=== PATIENT | female | born 1955 | race Two or more races ===

== ENCOUNTER 2016-08-26 05:22 | Day surgery (SDC) | payer OTHER ==
--- NOTE | 2016-08-25 12:27 | PREOPHP ---
DATE OF ADMISSION: 08/26/2016 REASON FOR ADMISSION: The patient is to be admitted tomorrow, 08/26/2016, for a vaginal hysterectom y, anterior and posterior repair with Bibiana plication. CHIEF COMPLAINT: The patient feels and sees something protruding out of the vagina. HISTORY OF PRESENT ILLNESS: This is a 60-year-old female, 5, para 5, who has been experienc ing and the fact that something is coming out of the vagina. She can reduce it with her fingers, bu t as soon as she moves around, it will come out again. She was found to have a uterine prolapse, cy stocele and rectocele. She is also complaining of moderate urinary incontinence to coughing or laug anna with minimal efforts. A total vaginal hysterectomy, anterior and posterior repair with Bibiana p lication was planned for her. This procedure was carefully explained in the office. It was explain ed in a graphic way so she could understand what it implied. The alternatives to the procedure, the benefits of the same, the risks, and possible complications were discussed in great detail. She w as allowed to ask questions and all her questions were answered to her satisfaction. She signed the appropriate surgical informed consent for hysterectomy. She was also made aware that may need to w ear a Castaneda catheter for a few days after the anterior repair. The patient is a Protestant a nd would not accept blood products. All the precautions will be taken to recycle her old blood loss . She was also made aware that there may be complications to the procedure need to be fixed by a la parotomy. PAST MEDICAL HISTORY: The patient denies any medical problems. Denies diabetes, cardiovascular dis ease, renal disease, liver disease, neurological disease, or thyroid problems. ALLERGIES: NO KNOWN ALLERGIES. MEDICATIONS: She has been using the 81 mg aspirin daily, but it was stopped 10 days prior to surger y. FAMILY HISTORY: Noncontributory. REVIEW OF SYSTEMS: A 12-point review of systems is noncontributory. PHYSICAL EXAMINATION: GENERAL: Well-developed and nourished, in no distress, alert and oriented x3 with a height of 5 fee t 4 inches, weight 124 pounds. VITAL SIGNS: Showed temperature to be 98, blood pressure 140/62, respirations 16 per minute, the pu lse is 72 per minute and regular. HEENT: Within normal limits. Pupils are PERRLA. NECK: Supple. The thyroid is not palpable. There is no lymphadenopathy. BREASTS: Show no masses or lumps. LUNGS: Clear to percussion and auscultation. HEART: Normal sinus rhythm without a murmur. ABDOMEN: Soft without organomegalies or hernias. PELVIC: Normal external genitalia. Cervix is prolapsing at the level of the vagina entrance. Ther e is a cystocele and rectocele present. Bimanual exam: Uterus small, mobile. There are no adnexa l masses present, and loss of the urethrovesical angle was also observed. EXTREMITIES: Within normal limits. NEUROLOGIC: Also normal. IMPRESSION: 1. Pelvic organ prolapse. 2. Uterine prolapse. 3. Cystocele and rectocele. 4. Stress urinary incontinence. Dictated By: ALEX ALLISON MD CR/NTS Conf#: [id number] DID#: [id number] CC: PAYAL FLOWERS MD;*End*
[~2016-08-26] VITALS: Ht 160 cm; Wt 57.6 kg
[2016-08-26] VITALS (20 sets, daily range): BP systolic 80–133; BP diastolic 51–65; PULSE 49–72; RESP 12–20; Ht 160 cm; Wt 57.6 kg
[2016-08-26] MEDS ORDERED: PHENYLephrine (100 MCG/ML) 5ML SYG ONE (05:31)
[2016-08-26] MEDS ORDERED: SODIUM CL BACTERIOSTATIC 30 ML INJ ONE ×2 (07:03→07:07)
[2016-08-26] MEDS ORDERED: BUPIVACAINE 0.5%/EPI (SDV) 30 ML INJ ONE (07:03)
[2016-08-26] MEDS ORDERED: VASOPRESSIN 20 UNITS INJ ONE (07:03)
[2016-08-26] MEDS ORDERED: FENTAnyl 50 MCG/ML VIAL ONE (07:18)
[2016-08-26] MEDS ORDERED: HEPARIN 1000 UNITS/ML 10 ML INJ ONE (07:49)
[2016-08-26] MEDS ORDERED: ASPI81TA3 PO (08:03)
[2016-08-26] MEDS ORDERED: HYDROmorphONE (0.2 MG/ML) 10ML SYG IV PRN ×3 (08:30)
[2016-08-26] MEDS ORDERED: ONDANSETRON 4 MG INJ IV PRN ×2 (08:30→11:00)
[2016-08-26] MEDS ORDERED: METOCLOPRAMIDE 10 MG INJ IV PRN (08:30)
[2016-08-26] MEDS ORDERED: MEPERIDINE 25 MG INJ IV PRN (08:30)
[2016-08-26] MEDS ORDERED: DIPHENHYDRAMINE 50 MG INJ IV PRN (08:30)
[2016-08-26] MEDS ORDERED: HYDROmorphONE 0.2 MG/ML PCA IV SCH (08:30)
[2016-08-26] MEDS ORDERED: ALBUTEROL 0.5% (NEB) 2.5 MG/0.5 ML AMP INH ONE (08:30)
[2016-08-26] MEDS ORDERED: METHYLENE BLUE 10 MG/ML VIAL ONE ×2 (08:42→09:40)
[2016-08-26] MEDS ORDERED: PROPOFOL 20 ML ONE (08:44)
[2016-08-26] MEDS ORDERED: LIDOCAINE 2% (SDV) 5 ML INJ ONE (08:44)
[2016-08-26] MEDS ORDERED: GLYCOPYRROLATE 0.4 MG INJ ONE (08:44)
[2016-08-26] MEDS ORDERED: NEOSTIGMINE 3 MG/3 ML SYRINGE ONE (08:44)
[2016-08-26] MEDS ORDERED: SUCCINYLCHOLINE CHLORIDE 100 MG/5 ML SYG IV ONE (08:44)
[2016-08-26] MEDS ORDERED: CEFAZOLIN 1 GM INJ ONE (08:44)
[2016-08-26] MEDS ORDERED: ROCURONIUM 50 MG INJ ONE (08:44)
[2016-08-26] MEDS: FENTAnyl 50 MCG/ML VIAL IV PRN ×4 (10:49→11:20)
[2016-08-26] MEDS ORDERED: IBUPROFEN 600 MG TAB PO PRN (11:00)
[2016-08-26] MEDS ORDERED: ACETAMINOPHEN 325 MG TAB PO PRN (11:00)
[2016-08-26] MEDS ORDERED: OXYCODONE/ACETAMINOPHEN (5/325) TAB PO PRN ×2 (11:00)
[2016-08-26] MEDS ORDERED: HYDROmorphONE 1 MG/ML SYG IV PRN (11:00)
[2016-08-26] MEDS: KETOROLAC 30 MG INJ IV PRN (12:32)
[2016-08-26] MEDS: CEFAZOLIN 2 GM/50 ML (PMX) 50 ML IVPB SCH ×2 (12:39→19:18)
[2016-08-26] MEDS: LACTATED RINGER'S 1,000 ML IV SCH ×2 (12:39→20:28)
--- NOTE | 2016-08-26 14:04 | OPR ---
DATE OF OPERATION: 08/26/2016 PREOPERATIVE DIAGNOSES: 1. Pelvic organ prolapse. 2. Uterine prolapse. 3. Cystocele. 4. Rectocele. 5. Stress urinary incontinence. POSTOPERATIVE DIAGNOSES 1. Pelvic organ prolapse. 2. Uterine prolapse. 3. Cystocele. 4. Rectocele. 5. Stress urinary incontinence. PROCEDURE PERFORMED: Total vaginal hysterectomy, anterior repair and Bibiana plication. Cystoscopy was done to assure the integrity of the urinary tract. SURGEON: Alex Sanchez MD. BASE REMOVER: Payal Burgess MD ANESTHESIOLOGIST: Thuan Simpson MD ANESTHESIA: General. ESTIMATED BLOOD LOSS: Negligible. COMPLICATIONS: None. SPECIMENS: Uterus was sent to pathology. PROCEDURE AND FINDINGS: With the patient under general anesthesia, she was laid on the table in the dorsal lithotomy position. Her abdomen was prepped with Betadine as well as the inner thighs, perineum and vagina and then after 3 minutes, she was dressed in the usual sterile fashion. A Castaneda catheter was placed in the bladder. A weighted posterior retractor was applied to the posterior vaginal wall and the anterior lip of the cervix was grasped with a Melodie clamp. Cervix was at the level of the spine and when pulled slightly it would come out bringing the whole uterus and bladder out . The cervix was infiltrated with 0.5% Marcaine with epinephrine as well with diluted vasopressin. The procedure was started by opening the vaginal mucosa was circumferentially around the cervix. Then, this was followed by opening the endopelvic fascia circumferentially also around the cervix. The bladder was dissected easily away from the uterine segment and the anterior fold of the peritoneum was found. The posterior fold the peritoneum was also found and entered with scissors. The weighted retractor was advanced. The uterine body was palpated. It was found to be small, smaller than the cervix. It had hypertrophy. The procedure was started by clamping the uterosacral ligament on the right side with a Ramon clamp, cut and sutured with 0 Vicryl and was held for future reference. The same was done on the contralateral side. The cardinal ligament on the right side was found, clamped with a Ramon clamp, cut and sutured with 0 Vicryl. The same was done on the contralateral side. The anterior fold of the peritoneum was opened with scissors and a right angle retractor was advanced. The uterine pedicle was found and dissected on the right side and clamped with a Ramon clamp, cut and sutured with 0 Vicryl. The same was done on the contralateral side. Then, on the left side, the upper pedicle consisting of the round ligament, the tube and the utero-ovarian ligament were held with a Ramon clamp, cut and sutured twice with 0 Vicryl and held for reference. The same was done on the right side now. The specimen was then removed. When inspecting the pelvis, normal small ovaries were found. There was an abnormal amount of fluid in the pelvis. This was thought there could be an injury of the bladder and cystoscopy was carried out. Before the cystoscopy was done, the bladder was inspected outside and there was no evidence of any injury. The peritoneum was closed with a pursestring suture of 0 Vicryl that was tied. The cystoscopy was carried out with an Endocamera. A 30-degree angle scope inserted. The anesthesiologist was asked to inject methylene blue intravenously. The bladder was distended with saline. The ureteral meatus on the right side was visualized. There was a delay in excretion of the methylene blue, but the left side was also seen patent. The procedure was discontinued. The Castaneda catheter was reinserted. The anterior repair was done by opening the anterior vaginal wall in an inverted T fashion. The vaginal mucosa was dissected bilaterally from the endopelvic fascia. The edges of the incision were held with Allis clamps and this was carried out all the way up to the urethrovesical angle. There was a total loss of this angle. The fascia was then used to put imbricating sutures of 0 Vicryl on the angle, doing a classical Bibiana plication. This was done with 2 sutures of 0 Vicryl. The cystocele was reduced by pursestring sutures of the same suture material. The excessive mucosa was trimmed away. The incision was closed with a continuous running stitch of 0 Vicryl. Good hemostasis was obtained. No packing was left in place. The urine continued to be abundant and clear. The patient withstood the procedure well and was taken to recovery room with all vital signs stable. EBL was less than 100 mL. Needle , sponge and instrument count at the end of the procedure was correct twice. Dictated By: ALEX MCMULLEN/LINUS Conf#: [id number] DID#: [id number] CC: PAYAL BURGESS MD;*EndCC* MTDD
[2016-08-27 00:02] VITALS: BP 110/62; PULSE 66; RESP 17
[2016-08-27] MEDS: CEFAZOLIN 2 GM/50 ML (PMX) 50 ML IVPB SCH (02:58)
[2016-08-27 05:07] LABS: ADD SCAN DIFF NO
[2016-08-27 05:14] LABS: BASOPHILS % 0.4 % (0.0-2.0); EOSINOPHILS # 0.5 10^3/ul (0.0-0.5); EOSINOPHILS % 5.7 % (0.0-7.0); HEMATOCRIT 32.5 % (37.0-47.0); LYMPHOCYTES # 0.8 10^3/ul (0.8-2.9); LYMPHOCYTES % 9.2 % (15.0-51.0); MEAN CORPUSCULAR HEMOGLOBIN 25.2 pg (29.0-33.0); MEAN CORPUSCULAR HGB CONC 30.8 g/dl (32.0-37.0); MEAN CORPUSCULAR VOLUME 81.9 fl (82.0-101.0); MEAN PLATELET VOLUME 10.5 fl (7.4-10.4); MONOCYTE # 0.9 10^3/ul (0.3-0.9); MONOCYTES % 10.6 % (0.0-11.0); NEUTROPHIL # 6.3 10^3/ul (1.6-7.5); NEUTROPHILS % 73.7 % (39.0-77.0); PLATELET COUNT 225 10^3/UL (140-415); RED BLOOD COUNT 3.97 10^6/ul (4.20-5.40); RED CELL DISTRIBUTION WIDTH 18.1 % (11.5-14.5); WHITE BLOOD COUNT 8.5 10^3/ul (4.8-10.8)
[2016-08-27] MEDS: PANTOPRAZOLE 40 MG INJ IV SCH (05:38)
[2016-08-27 05:39] LABS: POTASSIUM 4.1 mmol/L (3.5-5.1)
[2016-08-27 05:42] LABS: CREATININE 0.75 mg/dl (0.44-1.00)
[2016-08-27 05:43] LABS: CALCIUM 8.5 mg/dl (8.4-10.2)
[2016-08-27] MEDS: KETOROLAC 30 MG INJ IV PRN ×2 (07:42→16:15)
--- NOTE | 2016-08-27 07:45 | PN ---
Date/Time of Note Date/Time of Note DATE: 08/27/16 TIME: 07:40 Assessment/Plan VTE Prophylaxis VTE Prophylaxis Intervention: ambulation, anti-embolic stocking Lines/Catheters IV Catheter Type (from Nrsg): Peripheral IV Central line still needed: No Urinary Cath still in place: Yes Reason Cath still needed: other (indicate) Assessment/Plan Chief Complaint/Hosp Course Still in pain.Needs to continue Castaneda due to bladder surgery.Cystocele repair. Problems: Assessment/Plan Doing well for firts day after TVH and anterior repair with Bibiana plication.WBC 8, Hemoglobin 10 grs. Cont'd Hospitalization Reason: This afteernoon if able to tolerate ambulation and has good pain control. Subjective 24 Hr Interval Summary Free Text/Dictation Complains of mild to moderate pain.No vaginal bleeding,good urinary output, clear urine. Exam/Review of Systems Vital Signs Vitals Vital Signs Date Time Temp Pulse Resp B/P Pulse Ox O2 Delivery O2 Flow Rate FiO2 08/27/16 05:00 18 08/27/16 00:02 98.0 66 110/62 99 Nasal Cannula 2.0 Intake and Output 08/26/16 08/26/16 08/27/16 15:00 23:00 07:00 Intake Total 2300 ml 1400 ml 1170 ml Output Total 50 ml 1100 ml 1000 ml Balance 2250 ml 300 ml 170 ml Results Result Diagram: 08/27/16 0415 08/27/16 0415 Results 24 hrs Laboratory Tests Test 08/27/16 04:15 Anion Gap 12 Basophils # 0.0 Basophils % 0.4 Blood Urea Nitrogen 7 Calcium Level 8.5 Carbon Dioxide Level 27 Chloride Level 104 Creatinine 0.75 Eosinophils # 0.5 Eosinophils % 5.7 Glucose Level 104 Hematocrit 32.5 L Hemoglobin 10.0 L Lymphocytes # 0.8 Lymphocytes % 9.2 L Mean Corpuscular Hemoglobin 25.2 L Mean Corpuscular Hemoglobin Concent 30.8 L Mean Corpuscular Volume 81.9 L Mean Platelet Volume 10.5 H Monocytes # 0.9 Monocytes % 10.6 Neutrophils # 6.3 Neutrophils % 73.7 Nucleated Red Blood Cells # 0.0 Nucleated Red Blood Cells % 0.0 Platelet Count 225 Potassium Level 4.1 Red Blood Count 3.97 L Red Cell Distribution Width 18.1 H Sodium Level 139 White Blood Count 8.5 Medications Medications Current Medications Acetaminophen (Tylenol Tab) 650 mg Q4H PRN PO PAIN LEVEL 1-5; Start 08/26/16 at 11:00 Ibuprofen (Motrin) 600 mg Q8H PRN PO PAIN AND OR ELEVATED TEMP; Start 08/26/16 at 11:00 Oxycodone/ Acetaminophen (Percocet (5/ 325)) 1 tab Q4H PRN PO PAIN LEVEL 6-10; Start 08/26/16 at 11:00 Ondansetron HCl (Zofran Inj) 4 mg Q6H PRN IV NAUSEA AND/OR VOMITING; Start 08/26 at 11:00 Oxycodone/ Acetaminophen (Percocet (5/ 325)) 2 tab Q4H PRN PO PAIN; Start at 11:00 Hydromorphone HCl (Dilaudid) 1 mg Q6H PRN IV PAIN; Start 08/26/16 at 11:00 Ketorolac Tromethamine (Toradol) 30 mg Q6H PRN IV PAIN Last administered on 08/26 12:32; Admin Dose 30 MG; Start 08/26/16 at 11:00; Stop 08/29/16 at 10:59 Pantoprazole (Protonix Iv) 40 mg DAILY@06 IV Last administered on 08/27/16 05: 38; Admin Dose 40 MG; Start 08/27/16 at 06:00 ALEX ALLISON MD Aug 27, 2016 07:45
[2016-08-27 08:38] VITALS: BP 129/64; RESP 18
[2016-08-27 21:51] VITALS: BP 146/66; RESP 20
[2016-08-28] MEDS: PANTOPRAZOLE 40 MG INJ IV SCH (05:44)
[2016-08-28 08:19] VITALS: BP 119/57; RESP 14
--- NOTE | 2016-08-28 09:22 | PD.PPDC ---
PLUG SORTER Discharge Instruction Diagnosis Final Diagnosis: Uterine prolapse,cytocele,stress urinary incontinence. 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
--- NOTE | 2016-08-28 10:56 | DS ---
DATE OF ADMISSION: 08/26/2016 DATE OF DISCHARGE: 08/28/2016 FINAL DIAGNOSES: 1. Pelvic organ prolapse. 2. Uterine prolapse. 3. Cystocele grade III. 4. Stress urinary incontinence. PROCEDURE: The patient had a total vaginal hysterectomy, anterior repair, Bibiana plication and cysto scopy on 08/26/2016. She is going home today, 08/28/2016. SUMMARY: This is a 60-year-old female, 5, para 5, who has been complaining of something com ing through the vagina and pelvic pressure and pain. She has also lost urine with moderate to minim al efforts. She underwent a total vaginal hysterectomy, anterior repair and Bibiana plication. She h ad a cystoscopy to reassure us that there was no urinary tract injury. Postoperatively, she has don e well. She is passing gases with no problem. She is sitting up eating a normal regular diet at [facility] and eager to go home. A trial will be done with removing the Castaneda and see if she can urina te well. If the residual urines are less than 150 mL she will go home without a Castaneda. If not, she will have the Castaneda reinserted and we will remove it in the office in 3 to 4 days. She was given p rinted instructions. She is on a regular diet. She is to resume her aspirin 81 mg daily. She was given a prescription for Percocet and Macrobid to take home and instructed how to use them. She is to follow up with me in the office in 1 week. Discharged in good condition. Dictated By: ALEX MCMULLEN/LINUS Conf#: [id number] DID#: [id number] CC: PAYAL FLOWERS MD;*End*
[2016-08-29] MEDS ORDERED: PANTOPRAZOLE (EC) 40 MG TAB PO SCH (06:00)
== END 2016-08-28 13:55 | disposition home or self-care (01) ==
LOC: SDS 05:22 → MS1 12:10 → SDS 08-28 13:55
PROVIDERS: ATTEND Specialist
DX: N81.10 Cystocele, unspecified (principal); N81.6 Rectocele; N81.4 Uterovaginal prolapse, unspecified; N39.3 Stress incontinence (female) (male)
CPT/HCPCS: 58270; 80048; 85025; 87086; 88305; C9113; J0330; J0690; J1170; J1644; J1885; J2175; J2405; J2710; J3010; Z7512; Z7610; J2370